=== PATIENT | female | born 1990 | race American Indian/Alaskan Native ===

== ENCOUNTER 2018-07-24 20:37 | Emergency (ER) | payer OTHER ==
--- NOTE | 2018-07-24 21:40 | Emergency Department Report ---
HPI - General Chief Complaint: High BP Time Seen by Provider: 07/24/18 21:35 - HPI HPI: Room 30 The patient is 28-year-old male presenting with a chief complaint of headache and chest heaviness. The patient states the past 2 months she's had intermitten t chest heaviness and is not certain if it is related to her large breast size. The patient states over the past week she's had frequent intermittent headaches in the left side of the head associated with nausea and sometimes vomiting and occasional photophobia. The patient states she takes Excedrin Migraine medication and helps temporarily. Patient denies any preceding trauma or history of fever. The patient went to an urgent care facility today and was given clonidine and transferred to the ED. Location: [See above] Duration: [See above] Quality: Headache Severity: Moderate Modifying factors: [see above] Context: [see above] Mode of transportation: The patient is driving and there are no visitors present ED Past Medical Hx - Past Medical History Previous Medical History?: No - Surgical History Past Surgical History?: No - Family History Family history: no significant - Social History Smoking Status: Never Smoker Substance Use Type: None (denies illicit drug use), Alcohol (occasional) - Medications Home Medications: Home Medications Medication Instructions Recorded Confirmed Last Taken Type Butalb/Acetamin/Caff 50-325-40 2 tab PO Q8HR PRN #20 tablet 07/24/18 Unknown Rx [Fioricet] amLODIPine [Norvasc] 5 mg PO DAILY #30 tab 07/24/18 Unknown Rx ED Review of Systems ROS: Stated complaint: ELEVATED BLOOD PRESSURE, MIGRAINE Other details as noted in HPI Constitutional: denies: fever Eyes: denies: eye pain ENT: denies: throat pain Respiratory: no symptoms reported Cardiovascular: chest pain Endocrine: no symptoms reported Gastrointestinal: nausea, vomiting Genitourinary: denies: dysuria Musculoskeletal: denies: back pain Neurological: headache Physical Exam - Physical Exam Vital Signs: Vital Signs 07/24/18 20:41 Temperature 98.5 F Pulse Rate 105 H Respiratory 18 Rate Blood Pressure 135/102 O2 Sat by Pulse 100 Oximetry Physical Exam: GENERAL: The patient is well-developed well-nourished female sitting in chair not appear to be in acute distress. [] HEENT: Normocephalic. Atraumatic. Extraocular motions are intact. Patient has moist mucous membranes. NECK: Supple. No meningitic signs are noted. Trachea midline CHEST/LUNGS: Clear to auscultation. There is no respiratory distress noted. HEART/CARDIOVASCULAR: Regular. There is no tachycardia. There is no gallop rub or murmur. ABDOMEN: Abdomen is soft, nontender. Patient has normal bowel sounds. There is no abdominal distention. SKIN: There is no rash. There is no edema. There is no diaphoresis. NEURO: The patient is awake, alert, and oriented. The patient is cooperative. The patient has no focal neurologic deficits. The patient has normal speech. Cranial nerves II through XII grossly intact, no drift MUSCULOSKELETAL: There is no evidence of acute injury. ED Course Vital Signs 07/24/18 20:41 Temperature 98.5 F Pulse Rate 105 H Respiratory 18 Rate Blood Pressure 135/102 O2 Sat by Pulse 100 Oximetry ED Medical Decision Making - Lab Data Result diagrams: 07/24/18 21:40 07/24/18 21:40 Laboratory Tests 07/24/18 07/24/18 07/24/18 21:40 21:40 21:40 WBC 6.2 RBC 4.17 Hgb 12.2 Hct 36.9 MCV 89 MCH 29 MCHC 33 RDW 15.1 Plt Count 395 Lymph % (Auto) 30.1 [place] % (Auto) 6.9 Eos % (Auto) 6.4 H Baso % (Auto) 1.4 Lymph # 1.9 [place] # 0.4 Eos # 0.4 Baso # 0.1 Seg Neutrophils % 55.2 Seg Neutrophils # 3.4 Sodium 141 Potassium 3.5 L Chloride 106.0 Carbon Dioxide 25 Anion Gap 14 BUN 8 Creatinine 0.6 L Estimated GFR > 60 BUN/Creatinine Ratio 13 Glucose 90 Calcium 8.8 Total Creatine Kinase 84 CK-MB (CK-2) < 1.0 CK-MB (CK-2) Rel Index 1.1 Troponin T < 0.010 HCG, Qual Negative - EKG Data -: EKG Interpreted by Me EKG shows normal: sinus rhythm Rate: normal - EKG Data When compared to previous EKG there are: previous EKG unavailable Interpretation: nonspecific ST-T wave soy (early repolarization) - Radiology Data Radiology results: report reviewed (CT head), image reviewed (CT head) [facility] [address] [place] [address] Cat Scan Report Signed Patient: SUE PADGETT MR#: [id number] : 1990 Acct:[id number] Age/Sex: 28 / F ADM Date: 07/24/18 Loc: ED Attending Dr: Ordering Physician: CARLEY BARRETO MD Date of Service: 07/24/18 Procedure(s): CT head/brain wo con Accession Number(s): [id number] cc: CARLEY BARRETO MD FINAL REPORT PROCEDURE: CT HEAD/BRAIN WO CON TECHNIQUE: Computerized tomography of the head was performed without contrast material. HISTORY: left-sided headache, hypertension COMPARISON: No prior studies are available for comparison. FINDINGS: Skull and scalp: Normal. Paranasal sinuses: Normal. Ventricles and subarachnoid spaces: Normal. Cerebrum: No evidence of hemorrhage, acute infarction or mass . Cerebellum and brainstem: No evidence of hemorrhage, acute infarction or mass. Vasculature: Normal. Comments: None. IMPRESSION: Normal Examination Transcribed By: [facility] [place]ictated By: COLE DAVE Electronically Authenticated By: COLE DAVE Signed Date/Time: 07/24/182309 DD/ 09 TD/TT: 07/24/182309 - Differential Diagnosis hypertensive urgency, migraine headache, intracranial mass, ICH Critical care attestation.: If time is entered above; I have spent that time in minutes in the direct care of this critically ill patient, excluding procedure time. ED Disposition Clinical Impression: Headache, Hypertension Disposition: - TO HOME OR SELFCARE Is pt being admited?: No Does the pt Need Aspirin: No Condition: Stable Instructions: Acute Headache (ED), Migraine Headache (ED), Hypertension (ED) Additional Instructions: Return to the emergency department immediately should you develop worsening symptoms, fever, inability to tolerate food or liquid or any other concerns. Prescriptions: amLODIPine [Norvasc] 5 mg PO DAILY #30 tab Butalb/Acetamin/Caff 50-325-40 [Fioricet] 2 tab PO Q8HR PRN #20 tablet PRN Reason: Headache Referrals: AUGUSTIN ULLOA MD [Primary Care Provider] - 3-5 Days (Dr. Ulloa is a primary physician. Please follow up with him to be established as a patient and for further evaluation of your blood pressure) CHRIS KUMAR MD [Staff Physician] - 3-5 Days (Dr Kumar is a neurologist. Please follow up with him for further evaluation) Time of Disposition: 23:29
[2018-07-24 21:56] LABS: Basophils # (Auto) 0.1 K/mm3 (0.0-0.1); Basophils % (Auto) 1.4 % (0.0-1.8); Eosinophils # (Auto) 0.4 K/mm3 (0.0-0.4); Eosinophils % (Auto) 6.4 % (0.0-4.3); Hematocrit 36.9 % (30.3-42.9); Hemoglobin 12.2 gm/dl (10.1-14.3); Lymphocytes # (Auto) 1.9 K/mm3 (1.2-5.4); Lymphocytes % (Auto) 30.1 % (13.4-35.0); Mean Corpuscular HGB Conc 33 % (30-34); Mean Corpuscular Volume 89 fl (79-97); Monocytes # (Auto) 0.4 K/mm3 (0.0-0.8); Monocytes % (Auto) 6.9 % (0.0-7.3); Platelet Count 395 K/mm3 (140-440); Red Blood Count 4.17 M/mm3 (3.65-5.03); Red Cell Distribution Width 15.1 % (13.2-15.2)
[2018-07-24 22:23] LABS: BUN/Creatinine Ratio 13; Blood Urea Nitrogen 8 mg/dL (7-17); Calcium 8.8 mg/dL (8.4-10.2); Hemolysis Index 12
[2018-07-24 22:32] LABS: Creatine Kinase MB < 1.0 ng/mL (0.0-4.0)
--- NOTE | 2018-07-24 23:10 | Cat Scan Report ---
FINAL REPORT PROCEDURE: CT HEAD/BRAIN WO CON TECHNIQUE: Computerized tomography of the head was performed without contrast material. HISTORY: left-sided headache, hypertension COMPARISON: No prior studies are available for comparison. FINDINGS: Skull and scalp: Normal. Paranasal sinuses: Normal. Ventricles and subarachnoid spaces: Normal. Cerebrum: No evidence of hemorrhage, acute infarction or mass . Cerebellum and brainstem: No evidence of hemorrhage, acute infarction or mass. Vasculature: Normal. Comments: None. IMPRESSION: Normal Examination
[2018-07-25 00:17] VITALS: BP 127/96
== END 2018-07-24 23:50 | disposition home or self-care (01) ==
LOC: ED 20:37
DX: I10 Essential (primary) hypertension (principal); R51 Headache; R07.89 Other chest pain
CPT/HCPCS: 36415; 70450; 80048; 82550; 82553; 84484; 84703; 85025; 93005; 93010